=== PATIENT | male | born 1960 | race African-American/Black ===

== ENCOUNTER → 2017-08-13 | Outpatient (CLI) | payer MEDICAID ==
[2017-07-25 11:00] VITALS: BP 110/76
[~2017-08-13] MED LIST: AMLO10TA2 PO; BRIM5DRO3 EACHEYE; DORZ10DR3 EACHEYE; DORZ10DR7 EACHEYE; INDA1.25 PO; LORA10TA3 PO; LOVA20TA2 PO; PRED5DRO16 EACHEYE; TAMS0.4C2 PO; TAMS0.4C97 PO; TRAM50TA PO; TRAV5DRO EACHEYE
--- NOTE | 2017-08-13 12:39 | RAD ---
Examination: Whole-body bone scan History: History of weight loss hypercalcemia. Comparison: CT chest abdomen pelvis from 07/24/2017 graft technique: Whole body bone scan was performed after administration of 25.0 mCi of technetium 99m MDP and anterior and posterior projections the whole body and pelvis were performed Findings Mild foci of radiotracer uptake identified in the bilateral shoulder joints likely secondary to degeneration There is a moderate size focus of radiotracer uptake identified in the right hip joint and a small focus of radiotracer uptake identified in the left hip joint. Visualized radiotracer uptake identified in the bilateral kidneys Impression: 1. Moderate size focus of radiotracer uptake identified in the right hip joint could be focal lesion or due to severe degeneration. Osteoarthritic degeneration is more likely as seen on the CT scan. MRI may be useful for further evaluation. 2. Small radiotracer uptake identified in the left hip joint probably due to degeneration.
== END | disposition home or self-care (01) ==
LOC: NM 07:54
PROVIDERS: ATTEND Internal Medicine Hematology & Oncology
DX: E83.52 Hypercalcemia (principal); I10 Essential (primary) hypertension; E11.9 Type 2 diabetes mellitus without complications; R63.4 Abnormal weight loss; Z96.641 Presence of right artificial hip joint
CPT/HCPCS: 78306; 96374; A9503

== ENCOUNTER 2017-08-16 08:14 | Outpatient (CLI) | payer MEDICAID ==
[~2017-08-16] VITALS: Ht 163.8 cm; Wt 60.8 kg
[2017-08-16] VITALS (10 sets, daily range): BP systolic 86–101; BP diastolic 62–75
[~2017-08-16 08:14] MED LIST changes: +LIDOCAINE 1% / SOD BICARB 8.4% 20 ML VIAL. IJ ONE; -LORA10TA3 PO
[2017-08-16] MEDS ORDERED: LORA10TA3 PO (08:45)
[2017-08-16 08:46] LABS: BASO % 0 % (0-3); EOS % 0 % (0-3); HEMATOCRIT 34.7 % (39.0-53.0); HEMOGLOBIN 11.5 g/dL (13.0-17.5); LYMPH # 0.5 x10^3/uL (1.0-4.8); LYMPH % 12 % (24-48); MEAN CORPUSCULAR HEMOGLOBIN 28 pg (25-35); MEAN CORPUSCULAR HGB CONC 33 g/dL (31-37); MEAN CORPUSCULAR VOLUME 85 fL (79-100); MONO % 15 % (0-9); NEUT % 73 % (31-73); PLATELET COUNT 215 x10^3/uL (140-400); RED BLOOD COUNT 4.09 x10^6/uL (4.30-5.70); RED CELL DISTRIBUTION WIDTH 13.6 % (11.5-14.5); WHITE BLOOD COUNT 4.3 x10^3/uL (4.0-11.0)
[2017-08-16 08:58] LABS: PROTHROMBIN TIME PATIENT 12.8 SEC (11.7-14.0)
[2017-08-16] MEDS ORDERED: LIDOCAINE 1% / SOD BICARB 8.4% 20 ML VIAL. IJ ONE ×3 (09:11→09:45)
[2017-08-16] MEDS ORDERED: fentaNYL PF VIAL 100 MCG/2 ML VIAL ONE (09:15)
[2017-08-16] MEDS ORDERED: MIDAZOLAM HCL/PF 2 MG/2 ML VIAL. ONE (09:15)
--- NOTE | 2017-08-16 09:32 | PDOC1 ---
History and Physical Date of Procedure Date of Admission 08/16/17 Procedure Procedure Bone marrow biopsy Indication Indication Hypercalcemia and weight loss History of Present Illness Reason for Visit Same Past Medical History Past Medical History No pertinent history Past Surgical History Past Surgical History No pertinent history Current Medications Current Medications Current Medications Lidocaine/Sodium Bicarbonate (Buffered Lidocaine 1%) 20 ml STK-MED ONCE IJ ; Start 08/16/17 at 08:09; Stop 08/16/17 at 08:10; Status DC Lidocaine/Sodium Bicarbonate (Buffered Lidocaine 1%) 20 ml STK-MED ONCE IJ ; Start 08/16/17 at 09:11; Stop 08/16/17 at 09:12; Status DC Lidocaine/Sodium Bicarbonate (Buffered Lidocaine 1%) 20 ml STK-MED ONCE IJ ; Start 08/16/17 at 09:11; Stop 08/16/17 at 09:12; Status DC Fentanyl Citrate (Fentanyl 2ml Vial) 100 mcg STK-MED ONCE .ROUTE ; Start at 09:15; Stop 08/16/17 at 09:16; Status DC Midazolam HCl (Versed) 2 mg STK-MED ONCE .ROUTE ; Start 08/16/17 at 09:15; Stop 08/16/17 at 09:16; Status DC Active Scripts Active Flomax (Tamsulosin Hcl) 0.4 Mg Cap.er.24h 0.8 Mg PO DAILY 30 Days Reported Loratadine 10 Mg Tablet 10 Mg PO DAILY PRN Dorzolamide-Timolol Eye Drops (Dorzolamide Hcl/Timolol Maleat) 10 Ml Drops 1 Drop EACHEYE BID Travatan Z (Travoprost) 5 Ml Drops 1 Drop EACHEYE DAILYWSUP Alphagan P (Brimonidine Tartrate) 5 Ml Drops 1 Drop EACHEYE BID Lovastatin 20 Mg Tablet 20 Mg PO HS Amlodipine Besylate 10 Mg Tablet 10 Mg PO DAILY Tramadol Hcl 50 Mg Tablet 50 Mg PO Q4H PRN Allergies Allergies: Coded Allergies: No Known Drug Allergies (Unverified , 07/21/17) Physical Exam Vital Signs Vital Signs Date Time Temp Pulse Resp B/P (MAP) Pulse Ox O2 Delivery O2 Flow Rate FiO2 08/16/17 09:00 98.3 82 17 101/75 (84) 99 Room Air 98.3 Other GENERAL: No apparent distress. Alert and oriented. HEENT: Head normocephalic, atraumatic. NECK: Supple LUNGS: Clear to auscultation. HEART: RRR, S1, S2 present, pulses intact ABDOMEN: Soft, positive bowel sounds. EXTREMITIES: No cyanosis or edema. NEUROLOGIC: Normal speech, normal tone PSYCHIATRIC: Normal affect, normal mood. SKIN: No ulceration. Assessment Assessment Hypercalcemia, weight loss Problems: Plan Plan Bone marrow biopsy BOB GENAO MD Aug 16, 2017 09:32
[2017-08-16] MEDS ORDERED: fentaNYL PF VIAL 100 MCG/2 ML VIAL IV ONE (09:45)
[2017-08-16] MEDS ORDERED: MIDAZOLAM HCL/PF 2 MG/2 ML VIAL. IV ONE (09:45)
--- NOTE | 2017-08-16 09:52 | PDOC ---
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
--- NOTE | 2017-08-16 12:25 | RAD ---
Procedure: CT-guided bone marrow aspiration and biopsy Clinical Indication: Hypercalcemia, weight loss Sedation: Conscious sedation was administered for 13 minutes. The patient was monitored by a qualified independent observer throughout the time of sedation. Please refer to the medical record for exact doses of medications utilized to achieve moderate sedation. Antibiotics: None Fluoro Time: Not applicable Contrast: Not applicable Sterility: The procedure was performed in its entirety using appropriate elements of sterile technique. Consent: The procedure was explained in its entirety to the patient or the patients designated representative phlebotomy services by a member of the treatment team, including a discussion of the risks, benefits and commonly accepted alternatives to the procedure, as well as the expected consequences of no therapy whatsoever. Discussion of the risks included, but was not limited to, those that are most frequent and those that are rare but possibly severe or life-threatening, as well as the possibility of unforeseen complications. Technique and Findings: Following informed consent, the patient was prepped and draped in the usual sterile fashion. 1% Lidocaine was used to achieve local anesthesia over the posterior superior iliac spine on the left. A small dermatotomy was made. Under periodic CT surveillance, a 10-gauge needle was advanced through the cortex and 2 separate 3 mL marrow aspirates were obtained and prepared by the on-site lead neurodiagnostic technologist. A single 11-gauge core bone biopsy specimen was then obtained and preserved in formalin. The needle was then removed and hemostasis was achieved with manual compression. Complications: No immediate Impression: 1. CT-guided bone marrow aspiration and biopsy as described PQRS Compliance Statement: One or more of the following individualized dose reduction techniques were utilized for this examination: 1. Automated exposure control 2. Adjustment of the mA and/or kV according to patient size 3. Use of iterative reconstruction technique
== END 2017-08-16 11:25 | disposition home or self-care (01) ==
LOC: INTRAD 08:14
PROVIDERS: ATTEND Internal Medicine Hematology & Oncology
DX: E83.52 Hypercalcemia (principal); E78.00 Pure hypercholesterolemia, unspecified; I10 Essential (primary) hypertension; E11.9 Type 2 diabetes mellitus without complications; F17.200 Nicotine dependence, unspecified, uncomplicated; Z98.42 Cataract extraction status, left eye; Z98.41 Cataract extraction status, right eye; Z87.39 Personal history of other diseases of the musculoskeletal system and connective tissue; Z72.89 Other problems related to lifestyle
CPT/HCPCS: 36415; 38221; 77012; 85025; 85610; 88184; 88185; 88237; 99152; G0364; J2250; J3010

== ENCOUNTER 2018-01-08 11:30 | Emergency (ER) | payer OTHER, MEDICAID ==
[2018-01-08 12:48] LABS: ADD MAN DIFF? NO
[2018-01-08 12:52] LABS: BASO % 1 % (0-3); EOS # 0.1 x10^3/uL (0.0-0.7); EOS % 3 % (0-3); HEMATOCRIT 35.7 % (39.0-53.0); HEMOGLOBIN 11.8 g/dL (13.0-17.5); LYMPH # 0.7 x10^3/uL (1.0-4.8); LYMPH % 21 % (24-48); MEAN CORPUSCULAR HEMOGLOBIN 28 pg (25-35); MEAN CORPUSCULAR HGB CONC 33 g/dL (31-37); MEAN CORPUSCULAR VOLUME 84 fL (79-100); MONO # 0.5 x10^3/uL (0.0-1.1); MONO % 15 % (0-9); NEUT # 1.9 x10^3uL (1.8-7.7); NEUT % 61 % (31-73); PLATELET COUNT 200 x10^3/uL (140-400); RED BLOOD COUNT 4.26 x10^6/uL (4.30-5.70); RED CELL DISTRIBUTION WIDTH 13.9 % (11.5-14.5); WHITE BLOOD COUNT 3.2 x10^3/uL (4.0-11.0)
[2018-01-08 13:03] LABS: ANION GAP 11 (6-14); BLOOD UREA NITROGEN 13 mg/dL (8-26); CALCIUM 10.4 mg/dL (8.5-10.1); CARBON DIOXIDE 26 mmol/L (21-32); CHLORIDE 101 mmol/L (98-107); CREATININE 1.1 mg/dL (0.7-1.3); GFR 83.2; GLUCOSE 154 mg/dL (70-99); POTASSIUM 3.9 mmol/L (3.5-5.1); SODIUM 138 mmol/L (136-145)
[2018-01-08 13:08] LABS: C-REACTIVE PROTEIN 10.5 mg/L (0-3.3); URIC ACID 6.5 mg/dL (3.5-7.2)
[2018-01-08 13:31] LABS: BILIRUBIN,URINE SMALL (NEG); CLARITY,URINE CLOUDY; COLOR,URINE AMBER; GLUCOSE,URINE NEGATIVE (NEG); NITRITE,URINE POSITIVE (NEG); PH,URINE 5.5; PROTEIN,URINE NEGATIVE (NEG-TRACE)
[2018-01-08 13:36] LABS: BACTERIA,URINE MANY /HPF (0-FEW); RBC,URINE 0 /HPF (0-2); WBC,URINE TNTC /HPF (0-4)
[2018-01-08] MEDS: COLCHICINE 0.6 MG TABLET PO ×2 (13:59)
[2018-01-08] MEDS: predniSONE 20 MG TABLET PO ×2 (14:00)
[2018-01-08 14:05] LABS: SEDIMENTATION RATE 72 (0-15)
== END 2018-01-08 14:28 | disposition home or self-care (01) ==
LOC: ER 11:30
DX: M10.071 Idiopathic gout, right ankle and foot (principal); E11.39 Type 2 diabetes mellitus with other diabetic ophthalmic complication; H40.9 Unspecified glaucoma; E78.00 Pure hypercholesterolemia, unspecified; I10 Essential (primary) hypertension; E11.36 Type 2 diabetes mellitus with diabetic cataract; Z98.49 Cataract extraction status, unspecified eye
CPT/HCPCS: 36415; 73630; 80048; 81001; 84550; 85025; 85651; 86140; 99285; J7512